=== PATIENT | male | born 1970 | race Caucasian/White ===

== ENCOUNTER → 2018-05-01 13:12 | Emergency (ER) | payer OTHER ==
[~2018-05-01 13:12] MED LIST: PPD test dose* 5 TU/0.1 ML TEST (*USE PPD ORDER SET*) ONE
[2018-05-01 13:27] VITALS: BP 124/84
== END | disposition home or self-care (01) ==
LOC: OHEAST 13:12
DX: Z11.1 Encounter for screening for respiratory tuberculosis (principal)